=== PATIENT | male | born 1990 | race Caucasian/White ===

== ENCOUNTER 2018-04-13 03:16 | Emergency (ER) | payer OTHER ==
[~2018-04-13] VITALS: Ht 180.3 cm; Wt 68.0 kg
--- NOTE | 2018-04-13 03:27 | ED GI/GU/ABDOMINAL COMPLAINT ---
History of Present Illness General Chief Complaint: Abdominal Pain/Flank Pain Stated Complaint: EXTREMELY PAINFUL ABD PAIN PER PT Source: patient Exam Limitations: no limitations Vital Signs & Intake/Output Vital Signs & Intake/Output Vital Signs Date Time Temp Pulse Resp B/P B/P Pulse O2 O2 Flow FiO2 Mean Ox Delivery Rate 04/13 0510 58 18 138/77 100 Room Air 04/13 0341 97.4 48 18 143/83 97 Room Air Allergies Coded Allergies: No Known Drug Allergies (nkda 04/13/18) Reconcile Medications Ibuprofen 800 MG TABLET 1 TAB PO TID PRN pain Oxycodone HCl/Acetaminophen (Percocet 5-325 MG Tablet) 5 MG-325 MG TABLET 1 TAB PO 4XDP PRN PAIN TEN...[id number] Triage Nurses Notes Reviewed? yes Duration: hour(s): Timing: recent history Quality/Severity: sharpness Location: right flank, right lower quadrant Radiation: no radiation Activities at Onset: none Modifying Factors: Worsens With: palpation. Associated Symptoms: abdominal pain HPI: 27 yo gentleman h/o kidney stones, presents with several hours of right flank pain radiating down to right lower quadrant, with occasional mild nausea. "It feels like I have another kidney stone." He notes no dysuria, fever, diarrhea, chest pain. He is otherwise well. Past History Travel History Traveled to [place] past 21 day No Medical History Any Pertinent Medical History? see below for history Renal: nephrolithiasis Surgical History Surgical History: none Family History Hx Contributory? No Review of Systems Review of Systems Constitutional: Denies: see HPI. Physical Exam Physical Exam Gastrointestinal: normal bowel sounds, soft, non-tender Comments: Review of Systems - except as otherwise noted in HPI Review of Systems Constitutional:no symptoms. EENTM:no symptoms. Respiratory:no symptoms. Cardiovascular:no symptoms. GI:no symptoms. Genitourinary:no symptoms. Musculoskeletal:no symptoms. Skin:no symptoms. Neurological/Psychological:no symptoms. Hematologic/Endocrine:no symptoms. Immunologic/Allergic:no symptoms. All Other Systems: Reviewed and Negative Physical Exam Physical Exam General Appearance: well developed/nourished, mild distress Head: atraumatic, normal appearance Eyes: Bilateral: normal appearance. Ears, Nose, Throat: normal pharynx, normal ENT inspection Neck: normal inspection, supple, full range of motion Respiratory: normal breath sounds, chest non-tender, no respiratory distress, quiet respiration, lungs clear Cardiovascular: regular rate/rhythm Gastrointestinal: normal bowel sounds, soft, non-tender, no organomegaly Back: normal inspection, normal range of motion Extremities: normal inspection, normal capillary refill, normal range of motion, no edema Neurologic/Psych: no motor/sensory deficits, awake, alert, oriented x 3 Skin: intact, normal color, warm/dry Core Measures ACS in differential dx? No Sepsis Present: No Sepsis Focused Exam Completed? No Progress Differential Diagnosis: appendicitis, biliary colic, cholecystitis, gastritis, hepatitis, urinary retention, urethritis, UTI/pyelo Plan of Care: Orders Procedure Date/time Status URINALYSIS 04/13 323 Complete LIPASE 04/13 323 Complete HEPATIC FUNCTION PANEL 04/13 323 Complete CBC WITHOUT DIFFERENTIAL 04/13 323 Complete BASIC METABOLIC PANEL 04/13 323 Complete AMYLASE 04/13 323 Complete Laboratory Tests 04/13/18 0346: Urinalysis LIGHT H, Urine Color FELICITY, Urine Clarity CLDY H, Urine pH 6.0, Ur Specific [place] >= 1.030, Urine Protein 30 H, Urine Ketones NEG, Urine Nitrite NEG, Urine Bilirubin SMALL H, Urine Urobilinogen 1.0, Ur Leukocyte Esterase TRACE H, Ur Microscopic SEDIMENT EXAMINED, Urine RBC PACKD H, Urine WBC 5-10 H, Ur Epithelial Cells FEW, Urine Bacteria FEW H, Urine Hemoglobin LARGE H, Urine Glucose NEG 04/13/18 0337: Anion Gap 12, Estimated GFR > 60, BUN/Creatinine Ratio 15.6, Glucose 116 H, Calcium 9.3, Total Bilirubin 0.5, Direct Bilirubin 0.3, AST 23, ALT 31, Alkaline Phosphatase 86, Total Protein 6.8, Albumin 4.1, Amylase 50, Lipase 210, CBC w Diff NO MAN DIFF REQ, RBC 4.57 L, MCV 95.7 H, MCH 32.7 H, MCHC 34.2, RDW 12.2 , MPV 8.5, Gran % 54.7, Lymphocytes % 30.9, Monocytes % 9.3, Eosinophils % 4.5, Basophils % 0.6, Absolute Granulocytes 4.5, Absolute Lymphocytes 2.5, Absolute Monocytes 0.8 H, Absolute Eosinophils 0.4, Absolute Basophils 0 Diagnostic Imaging: Viewed by Me: CT Scan. Discussed w/RAD: CT Scan. Radiology Impression: PATIENT: PERAULT,LAUREN PRESENT AGE: 27 PATIENT ACCOUNT NO: [id number] : 89 LOCATION: [facility] ORDERING PHYSICIAN: Amadeo Judge MD SERVICE DATE: 04/13/18 EXAM TYPE: CAT - CT ABD & PELVIS W/O IV CONTRAS EXAMINATION: CT ABDOMEN AND PELVIS WITHOUT CONTRAST CLINICAL INFORMATION: Right lower quadrant pain. COMPARISON: None. TECHNIQUE: Contiguous axial thin section helical images of the abdomen and pelvis were performed without oral or IV contrast. The data set was reformatted in the coronal and sagittal planes and reviewed on an independent workstation. DLP: 289 mGy-cm. FINDINGS: The visualized lung bases are clear. The visualized portions of the heart are unremarkable. The liver is of normal size and attenuation without focal lesions nor intrahepatic biliary ductal dilation. A normal gallbladder is identified. There is no wall thickening or discernible pericholecystic fluid. The spleen, pancreas, adrenal glands are unremarkable. Both kidneys are of normal size and attenuation. There is right grade 2-3 hydroureteronephrosis secondary to a 4 mm obstructive distal right ureteral calculus. There is also a nonobstructive right upper pole calculus measuring approximately 8 mm. There is a 2 mm nonobstructive calculus within the lower pole of the left kidney. There is no abdominal free fluid. There is neither mesenteric nor retroperitoneal lymphadenopathy. Normal unopacified loops of small and large bowel are identified. The appendix is of normal caliber with intraluminal gas. There are also intraluminal areas of higher attenuation which could correspond to small appendicoliths. There is no evidence for appendicitis. There is no pelvic free fluid. The urinary bladder is unremarkable. There is neither pelvic nor inguinal lymphadenopathy. Bone windows: Neither sclerotic nor lytic bone lesions are identified. IMPRESSION: Right grade 2-3 hydroureteronephrosis secondary to a 4 mm obstructive distal right ureteral calculus. There are additional nonobstructive renal calculi bilaterally. Appendix without manifestations of inflammation or infection, though with likely small appendicoliths. DICTATED BY: Gómez Allison MD DATE/TIME DICTATED:04/13/18420 GROUND SUPPORT AGENT:SHARI DATE/TIME TRANSCRIBED:04/13/18420 CONFIDENTIAL, DO NOT COPY WITHOUT APPROPRIATE AUTHORIZATION. <Electronically signed in Other Vendor System> SIGNED BY: Gómez Allison MD 04/13/18 0431 Initial ED EKG: none Departure Departure Disposition: HOME OR SELF CARE Condition: Stable Clinical Impression Primary Impression: Kidney stone Secondary Impressions: Renal colic on right side Departure Forms: Customer Survey General Discharge Information Prescriptions: Current Visit Scripts Ibuprofen 1 TAB PO TID PRN pain #30 TAB Oxycodone HCl/Acetaminophen (Percocet 5-325 MG Tablet) 1 TAB PO 4XDP PRN PAIN #10 TAB TEN...[id number] Comments pt feels well at discharge... pt referred to urology, wrote rx for supportive meds.
[2018-04-13 04:08] LABS: ABSOLUTE BASOPHIL COUNT 0 /CUMM (0.0-0.2); ABSOLUTE EOSINOPHIL COUNT 0.4 /CUMM (0.0-0.7); ABSOLUTE GRANULOCYTE CT 4.5 /CUMM (1.4-6.5); ABSOLUTE LYMPH COUNT 2.5 /CUMM (1.2-3.4); ABSOLUTE MONOCYTE COUNT 0.8 /CUMM (0.10-0.60); BASOPHIL % 0.6 % (0.0-2.0); EOSINOPHIL % 4.5 % (0-5); GRANULOCYTE % 54.7 % (42.2-75.2); HEMATOCRIT 43.7 % (42-52); MEAN CORPUSCULAR HGB 32.7 PG (27.0-31.0); MEAN CORPUSCULAR HGB CONC 34.2 G/DL (33.0-37.0); MEAN CORPUSCULAR VOLUME 95.7 FL (80.0-94.0); MEAN PLATELET VOLUME 8.5 FL (7.4-10.4); PLATELET COUNT 259 /CUMM (130-400); RBC DISTRIBUTION WIDTH 12.2 % (11.5-14.5); RED BLOOD CELL CT 4.57 /CUMM (4.70-6.10); WHITE BLOOD CELL COUNT 8.1 /CUMM (4.8-10.8)
--- NOTE | 2018-04-13 04:31 | CT SCAN REPORT ---
EXAMINATION: CT ABDOMEN AND PELVIS WITHOUT CONTRAST CLINICAL INFORMATION: Right lower quadrant pain. COMPARISON: None. TECHNIQUE: Contiguous axial thin section helical images of the abdomen and pelvis were performed without oral or IV contrast. The data set was reformatted in the coronal and sagittal planes and reviewed on an independent workstation. DLP: 289 mGy-cm. FINDINGS: The visualized lung bases are clear. The visualized portions of the heart are unremarkable. The liver is of normal size and attenuation without focal lesions nor intrahepatic biliary ductal dilation. A normal gallbladder is identified. There is no wall thickening or discernible pericholecystic fluid. The spleen, pancreas, adrenal glands are unremarkable. Both kidneys are of normal size and attenuation. There is right grade 2-3 hydroureteronephrosis secondary to a 4 mm obstructive distal right ureteral calculus. There is also a nonobstructive right upper pole calculus measuring approximately 8 mm. There is a 2 mm nonobstructive calculus within the lower pole of the left kidney. There is no abdominal free fluid. There is neither mesenteric nor retroperitoneal lymphadenopathy. Normal unopacified loops of small and large bowel are identified. The appendix is of normal caliber with intraluminal gas. There are also intraluminal areas of higher attenuation which could correspond to small appendicoliths. There is no evidence for appendicitis. There is no pelvic free fluid. The urinary bladder is unremarkable. There is neither pelvic nor inguinal lymphadenopathy. Bone windows: Neither sclerotic nor lytic bone lesions are identified. IMPRESSION: Right grade 2-3 hydroureteronephrosis secondary to a 4 mm obstructive distal right ureteral calculus. There are additional nonobstructive renal calculi bilaterally. Appendix without manifestations of inflammation or infection, though with likely small appendicoliths.
[2018-04-13] MEDS ORDERED: IBUPROFEN800 M1 PO (04:36)
[2018-04-13] MEDS ORDERED: PERCOCET 5-3251 EACH PO (04:36)
[2018-04-13 05:10] VITALS: BP 138/77
== END 2018-04-13 05:11 ==
LOC: ERH 03:16
PROVIDERS: Pediatrics
DX: N20.0 Calculus of kidney (principal); N23 Unspecified renal colic
CPT/HCPCS: 74176; 81001; 96374; 96375; J1885